=== PATIENT | male | born 1955 ===

== ENCOUNTER 2016-08-19 13:58 | Observation (INO) | payer OTHER ==
[~2016-08-19] VITALS: Ht 180.3 cm; Wt 81.6 kg
--- NOTE | 2016-08-19 14:07 | NUR ---
PT PRESENTS TO ER C/O OF LEFT SIDED CHEST PAIN THAT STARTED WEDNESDAY AND IS WORSE WITH EXERTION. PT DENIES SOB. PT STATES PAIN IS RIGHT BELOW LEFT BREAST AREA. PT STATES WHEN HE MOVES HIS ARM PAIN INCREASES
--- NOTE | 2016-08-19 15:29 | ED CARDIAC/CP/PALPITATIONS ---
History of Present Illness General Chief Complaint: Chest Pain Stated Complaint: CONSTANT CP SINCE WEDNESDAY Source: patient, family, old records Exam Limitations: no limitations Vital Signs & Intake/Output Vital Signs & Intake/Output ED Intake and Output 08/21 0000 08/20 1200 Intake Total 800 120 Output Total 300 Balance 500 120 Intake, Oral 800 120 Output, Urine 300 Patient 180 lb Weight Allergies Coded Allergies: No Known Allergies (08/19/16) Reconcile Medications Aspirin (Aspirin*) 81 MG TAB.CHEW 1 TAB PO DAILY HEART (Reported) Atorvastatin Calcium 40 MG TABLET 1 TAB PO DAILY CHOLESTEROL (Reported) Insulin Glargine,Hum.rec.anlog (Toujeo Solostar) 300 UNIT/ML (1.5 ML) INSULN.PEN 50 U SC DAILY DIABETES (Reported) Sitagliptin Phos/Metformin HCl (Janumet 50-1,000 MG Tablet) 50 MG-1,000 MG TABLET 1 TAB PO BID DIABETES (Reported) Valsartan (Diovan) 80 MG TABLET 1 TAB PO DAILY HEART (Reported) Triage Note: PT PRESENTS TO ER C/O OF LEFT SIDED CHEST PAIN THAT STARTED WEDNESDAY AND IS WORSE WITH EXERTION. PT DENIES SOB. PT STATES PAIN IS RIGHT BELOW LEFT BREAST AREA. PT STATES WHEN HE MOVES HIS ARM PAIN INCREASES Triage Nurses Notes Reviewed? yes Onset: Abrupt Duration: day(s): (3), constant Timing: recent history Quality/Severity: moderate, severe, aching, burning Location: back Radiation: no radiation Activities at Onset: sleep Prior Chest Pain/Card Workup: HOLTER MONITOR Nitro Today/Relief: no nitro taken today Aspirin Today: 81 mg x 1 Associated Symptoms: dizziness HPI: 61-year-old male with history of hypertension high cholesterol diabetes controlled with medication presents emergency room complaining of a three-day history of left-sided chest pain that intermittently radiates to his back and is worse with movement of his arm associated with dizziness. The patient states that he is been seen by emergency medicine physician Dr. Mitchell in the past most recently having a Holter monitor performed and is scheduled for nuclear stress test on September 07. He is a nonsmoker. His family history is significant in that multiple brothers have passed with coronary artery disease. There is no shortness of breath no pain with inspiration no cough no hemoptysis. Patient states that he had the flu several weeks ago however got better and recently return from [facility]. The symptoms are not worse with with inspiration, no hemoptysis. No recent sick contacts no abdominal pain nausea vomiting or diarrhea. Pain is described as burning aching constant 7 out of 10 worse with movement of his arm. Patient reports intermittent dizziness no lightheadedness. (KEVIN ADORNO) Past History Travel History Traveled to [place] past 21 day No Medical History Any Pertinent Medical History? see below for history Cardiovascular: hypertension, hyperlipidemia Endocrine: diabetes Surgical History Surgical History: non-contributory Psychosocial History What is your primary language Norwegian Tobacco Use: Never used Family History Comment: MULTIPLE BROTHERS PASSED IN THEIR 60S FROM HEART DISEASE Hx Contributory? Yes (KEVIN ADORNO) Review of Systems Review of Systems Constitutional: Reports: see HPI. All Other Systems: Reviewed and Negative Comments Review of systems: See HPI, All other systems negative. Constitutional, no chills no fever, no malaise HEENT: No visual changes no sore throat no congestion Cardiovascular: chest pain , no palpitation Skin, no rashes, no change in skin Respiratory: No dyspnea no cough no sputum GI: No nausea no vomiting, no diarrhea, : No dysuria Muscle skeletal: No joint pain, no joint swelling, no back pain, no neck pain, Neurologic: no headache Psych: No stress Heme/endocrine: No bruising no bleeding Immunology: No lymphadenopathy (KEVIN ADORNO) Physical Exam Physical Exam General Appearance: well developed/nourished, alert, awake, comfortable Cardiovascular: regular rate/rhythm Comments: Well-developed well-nourished person in no acute distress HEENT: Normal EENT exam; PERRL, EOMI, HEAD is atraumatic. moist mucous membranes. Neck: Supple, normal range of motion Back: Nontender, no CVA tenderness. Full range of motion Cardiovascular: Regular rate and rhythms no murmurs rubs or gallops, normal JVP Respiratory: Chest nontender.There were no bony deformities, no asymmetry. No respiratory distress. Patient speaking in full complete sentences. Breath sounds clear to auscultation bilaterally: NO W/R/R Abdomen: Soft, nontender nondistended, no appreciable organomegaly. Normal bowel sounds. No rebound/guarding, Extremity: No edema, full range of motion of extremities Neuro: Alert oriented x3, motor sensory normal, There were no obvious focal neurologic abnormalities. Skin: No appreciable rash on exposed skin, skin is warm and dry. Psych: Mood and affect is normal, memory and judgment is normal. Core Measures ACS in differential dx? 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 Sepsis Present: No Septic Shock Present: No (TREY ALARCON,KEVIN) Progress Differential Diagnosis: AMI, aortic dissection, atrial fibrillation, CHF/pulm edema, costochondritis Plan of Care: Orders Procedure Date/time Status Consistent Carbohydrate 2 08/20 B Active LIPID PANEL 08/20 599 Active CBC WITHOUT DIFFERENTIAL 08/20 599 Active BASIC ELECTROLYTES PLUS BUN&CR 08/20 599 Active TROPONIN LEVEL 08/20 0400 Active EKG 08/20 0400 Active TROPONIN LEVEL 08/19 2130 Active EKG 08/19 2130 Active Code Status 08/[address] in observation 08/19 1722 Active Pathway - chart 08/19 1719 Active Patient Data 08/19 1708 Active Add-on Test (ER Only) 08/19 1555 Active Telemetry/Supervisor Nutritional Yeast 08/19 1555 Active D-DIMER 08/19 1538 Complete TROPONIN LEVEL 08/19 1522 Complete PROTHROMBIN TIME 08/19 1522 Complete COMPREHENSIVE METABOLIC PANEL 08/19 1522 Complete CBC WITHOUT DIFFERENTIAL 08/19 1522 Complete EKG 08/19 1401 Active TRC EVALUATION (GEN) 08/19 UNK Active Pathway - chart 08/19 UNK Active House Staff 08/19 UNK Active VTE Mechanical Prophylaxis 08/19 UNK Active Vital Signs 08/19 UNK Active FingerStick- Glucose 08/19 UNK Active ECHOCARDIOGRAM 08/19 UNK Active Current Medications Sig/Snehal Start time Last Medication Dose Stop Time Status Admin Aspirin 81 MG DAILY 08/20 1000 UNVr (Aspirin) Losartan Potassium 25 MG DAILY 08/20 1000 UNVr (Cozaar) Heparin Sodium 5,000 UNIT Q8 08/19 2200 UNVr (Porcine) Insulin Detemir 25 UNITS BID 08/19 2200 UNVr (Levemir) Insulin Aspart 0 TIDAC 08/19 1815 UNVr (NovoLOG) Atorvastatin Calcium 40 MG DAILY 08/19 1740 UNVr (Lipitor) Acetaminophen 650 MG Q6 PRN 08/19 1730 UNVr (Tylenol) Acetaminophen/ 1 TAB Q6P PRN 08/19 1730 UNVr Hydrocodone Bitart (Vicodin) Morphine Sulfate 2 MG Q4P PRN 08/19 1730 UNVr (Morphine) Laboratory Tests 08/19/16 1538: Anion Gap 10, Estimated GFR > 60, BUN/Creatinine Ratio 14.4, Glucose 165 H, Calcium 9.8, Total Bilirubin 0.7, AST 28, ALT 32, Alkaline Phosphatase 70, Troponin I < 0.01, Total Protein 7.7, Albumin 4.2, Globulin 3.5, Albumin/ Globulin Ratio 1.2, PT 13.2 H, INR 1.26 H, D-Dimer < 200, CBC w Diff NO MAN DIFF REQ, RBC 5.35, MCV 80.8, MCH 26.2 L, RDW 14.0, MPV 7.7, Gran % 51.4, Lymphocytes % 38.6, Monocytes % 5.7, Eosinophils % 4.0, Basophils % 0.3, Absolute Granulocytes 5.9, Absolute Lymphocytes 4.4 H, Absolute Monocytes 0.6, Absolute Eosinophils 0.5, Absolute Basophils 0, PUBS MCHC 32.4 L Patient took aspirin prior to arrival nitroglycerin sublingual ordered case discussed with Dr. Davis. 08/19/2016 4:06:18 PM pain which was initially reproducible with range of motion of his arm and worse as now resolved after the nitroglycerin call was placed to Dr. Mitchell cardiology CASE D./W DR WILD COVERING FOR DR MITCHELL, WILL CONSULT AGREES GIVEN NORMAL TROP AND EKG (TREY ALARCON,KEVIN) Diagnostic Imaging: Viewed by Me: Radiology Read. Discussed w/RAD: Radiology Read. Radiology Impression: PATIENT: YASMINE RUSSO PRESENT AGE: 61 PATIENT ACCOUNT NO: [id number] : 54 LOCATION: [facility] ORDERING PHYSICIAN: KEVIN ALARCON SERVICE DATE: 08/19/163925 EXAM TYPE: RAD - XRY- PORTABLE CHEST XRAY EXAMINATION: XR PORTABLE CHEST CLINICAL INFORMATION: Cardiomegaly. Chest pain. COMPARISON: None TECHNIQUE: Portable AP view of the chest was obtained. 4:03 PM FINDINGS: Lungs are clear. No pulmonary vascular congestion. No infiltrate or pleural effusion. The heart size is normal. The cardiac and mediastinal contours are normal. There are calcifications of the thoracic aorta. IMPRESSION: Normal chest. Heart size is normal. DICTATED BY: CHAPO SINGH MD DATE/TIME DICTATED:08/19/161633 PRODUCTION LINE OPERATOR:RAD.ROUSSEAU DATE/TIME TRANSCRIBED:08/19/16 / 1633 CONFIDENTIAL, DO NOT COPY WITHOUT APPROPRIATE AUTHORIZATION. <Electronically signed in Other Vendor System> SIGNED BY: CHAPO SINGH MD 08/19/161637 Initial ED EKG: NORMAL SINUS AT 90, NO ACUTE st SEGMENT CHANGES NORMAL AXIS Rhythm Strip: normal sinus rhythm (KEVIN ADORNO) Departure Departure Time of Disposition: 1646 Disposition: STILL A PATIENT Condition: Stable Clinical Impression Primary Impression: Chest pain Referrals: CHRISTOFER KING MD (PCP/Family) Departure Forms: Customer Survey General Discharge Information Observation Note Spoke With: MILAGRO HECTOR,MARGOT Physician Advisor Notified: NANDA HECTOR,JAMARI Leal Place Patient In: Non-ED OBS Care Area Rationale for Observation: My rational for observation is as follows cardiology consult trend labs telemetry monitoring, patient will most likely require stress test given history family history premature discharge would BE medically harmful (KEVIN ADORNO) PA/MANAGEMENT RETAIL INTERN Co-Sign Statement Statement: ED Attending supervision documentation- [] I saw and evaluated the patient. I have also reviewed all the pertinent lab results and diagnostic results. I agree with the findings and the plan of care as documented in the PA's/MANAGEMENT RETAIL INTERN's documentation. [X] I have reviewed the ED Record and agree with the PA's/MANAGEMENT RETAIL INTERN's documentation. [] Additions or exceptions (if any) to the PAs/MANAGEMENT RETAIL INTERN's note and plan are summarized below: [] (ANASTACIA HECTOR,RENU) Critical Care Note Critical Care Note Critical Care Time: non-applicable (KEVIN ADORNO)
[2016-08-19] MEDS ORDERED: JANUMET 50-1,01 EACH PO (15:42)
[2016-08-19] MEDS ORDERED: DIOVAN80 M1 PO (15:42)
[2016-08-19] MEDS ORDERED: TOUJEO SOL300 UNIT/1 SC (15:42)
[2016-08-19] MEDS ORDERED: ATORVASTATIN CA40 M1 PO (15:43)
[2016-08-19 15:44] LABS: ABSOLUTE BASOPHIL COUNT 0 /CUMM (0.0-0.2); ABSOLUTE EOSINOPHIL COUNT 0.5 /CUMM (0.0-0.7); ABSOLUTE GRANULOCYTE CT 5.9 /CUMM (1.4-6.5); ABSOLUTE MONOCYTE COUNT 0.6 /CUMM (0.10-0.60); BASOPHIL % 0.3 % (0.0-2.0); GRANULOCYTE % 51.4 % (42.2-75.2); HEMATOCRIT 43.2 % (42-52); MEAN CORPUSCULAR HGB 26.2 PG (27.0-31.0); MEAN CORPUSCULAR HGB CONC 32.4 G/DL (33.0-37.0); MEAN CORPUSCULAR VOLUME 80.8 FL (80.0-94.0); MEAN PLATELET VOLUME 7.7 FL (7.4-10.4); PLATELET COUNT 257 /CUMM (130-400); RED BLOOD CELL CT 5.35 /CUMM (4.70-6.10); WHITE BLOOD CELL COUNT 11.4 /CUMM (4.8-10.8)
--- NOTE | 2016-08-19 15:50 | NUR ---
ASSUMED CARE, PT ALER AND ORIENTED, STATES THAT WEDNESDAY HE WOKE WITH L SIDE CP, PAIN HAS BEEN CONSTANT AND FEELS LIKE ITS RADIATING INTO HIS BACK, ALSO STATES THAT THIS AM WHEN HE WOKE HE FELT A LITTLE OFF BALANCE, PT NOTED TO SWAY WHEN THIS NURSE STOOD HIM FOR VITALS. ALSO STATES THAT PAIN INCREASES WITH MOVEMENT, NSR ON MONITOR , MEDICATED WITH 1 SL NITRO , PT COMPLAINED THAT HE WAS FEELING A LITTLE LIGHT HEADED, BP NOTED TO DROP FROM 135/78 TO 106/79 AFTER NITRO. BP INCREASED TO 118/74 WITH IN 5 MINUTES. PT DENIES CP AFTER BEING MEDICATED.PT IS IDDM [id number]. FAMILY AT BEDSIDE
[2016-08-19 15:52] LABS: PT 13.2 SEC (9.4-12.5)
[2016-08-19 16:06] LABS: ABSOLUTE LYMPH COUNT 4.4 /CUMM (1.2-3.4)
--- NOTE | 2016-08-19 16:38 | RADIOLOGY REPORT ---
EXAMINATION: XR PORTABLE CHEST CLINICAL INFORMATION: Cardiomegaly. Chest pain. COMPARISON: None TECHNIQUE: Portable AP view of the chest was obtained. 4:03 PM FINDINGS: Lungs are clear. No pulmonary vascular congestion. No infiltrate or pleural effusion. The heart size is normal. The cardiac and mediastinal contours are normal. There are calcifications of the thoracic aorta. IMPRESSION: Normal chest. Heart size is normal.
--- NOTE | 2016-08-19 17:12 | History & Physical ---
JAYCEE JONES MD 08/19/16 8102: General Information and HPI MD Statement: I have seen and personally examined YASMINE RUSSO and documented this H&P. The patient is a 61 year old M who presented with a patient stated chief complaint of chest pain. Source of Information: patient Exam Limitations: no limitations History of Present Illness: Mr. Myers is a 61 year old male with PMH HTN, HLD and insulin dependant diabetes mellitus as well as a strong family history of several male siblings who have from coronary artery disease who presents with constant, burning and pressure-like chest pain since 08/17/16. Patient reports he woke up on Wednesday and noted this left-sided chest discomfort that occasionally radiates to the back and worsens with left arm movement. It is rated moderately on the pain scale; there is no relief with over the counter the counter tylenol or nitroglycerin. This pain has been constant through to today which is the reason he presented to the emergency deparment. 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 Associated symptoms include occasional diaphoresis (which he experiences due to his diabetes), shortness of breath with intense exercise, constant chest discomfort described as burning and palpitations which are chronic and have been worked up with a holter monitor. Patient denies fever, chills, shortness of breath, wheezing, cough, abdominal pain, nausea, vomiting, dysuria, constipation or decreased exercise tolerance. Social history is negative for alcohol, current or prior tobacco abuse and illicit drug use. Family history is significant for several brothers who have passed from coronary artery diease, a father who of old age and a mother who of complications from diabetes mellitus. 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 Of note, patient follows with Dr. Wesley Smalls MD as his chief nurse executive. Patient is scheduled for a nuclear stress test later this month. Allergies/Medications Allergies: Coded Allergies: No Known Allergies (08/19/16) Home Med list Aspirin (Aspirin*) 81 MG TAB.CHEW 1 TAB PO DAILY HEART (Reported) Atorvastatin Calcium 40 MG TABLET 1 TAB PO DAILY CHOLESTEROL (Reported) Insulin Glargine,Hum.rec.anlog ([place] Solostar) 300 UNIT/ML (1.5 ML) INSULN.PEN 50 U SC DAILY DIABETES (Reported) Sitagliptin Phos/Metformin HCl (Janumet 50-1,000 MG Tablet) 50 MG-1,000 MG TABLET 1 TAB PO BID DIABETES (Reported) Valsartan (Diovan) 80 MG TABLET 1 TAB PO DAILY HEART (Reported) Compliance With Home Meds: GOOD Past History Travel History Traveled to [place] past 21 day No Medical History Cardiovascular: hypertension, hyperlipidemia Endocrine: diabetes History of CDIFF: No Isolation History: Standard Surgical History Surgical History: non-contributory Past Family/Social History Psychosocial History Where do you live? Home Who Do You Live With? Family Services at Home: None Smoking Status: Never Smoked ETOH Use: denies use Illicit Drug Use: denies illicit drug use Living Will? no Functional Ability ADLs Independent: dressing, eating, toileting, bathing. Ambulation: independent IADLs Independent: shopping, housework, finances, food prep, telephone, transportation , medication admin. Sexual History Sexually Active Yes Employment History Employment Retired Review of Systems Review of Systems Constitutional: Reports: diaphoresis. Denies: chills, fever, malaise, weakness, unexplained weight loss. EENTM: Denies: blurred vision, visual changes, hearing changes, nasal congestion. Cardiovascular: Reports: chest pain, palpitations, peripheral edema (Occasional RLE). Denies: orthopena, syncope. Respiratory: Denies: cough, short of breath, sputum production. GI: Denies: abdominal pain, nausea, changes in stool, vomiting. Genitourinary: Denies: dysuria. Musculoskeletal: Reports: back pain (Chest pain radiates to back). Skin: Denies: change in skin color, change in hair/nails, lesions, rash. Neurological/Psychological: Denies: ataxia, confusion, headache, numbness. Hematologic/Endocrine: Denies: bruising, bleeding, polyuria, polydipsia. Immunologic/Allergic: Denies: splenectomy. All Other Systems: Reviewed and Negative Exam & Diagnostic Data Last 24 Hrs of Vital Signs/I&O Vital Signs Date Time Temp Pulse Resp B/P Pulse O2 O2 Flow FiO2 Ox Delivery Rate 08/19 1748 76 119/73 08/19 1748 98.1 80 18 138/82 98 Room Air 08/19 1606 97.2 82 18 135/78 98 Room Air 08/19 1548 98 Room Air 08/19 1407 96.7 96 20 137/87 99 Room Air Intake & Output 08/19 1600 08/19 0800 08/19 0000 Intake Total 0 Output Total Balance 0 Intake, Oral 0 Patient 180 lb Weight Physical Exam General Appearance Alert, Oriented X3, Cooperative, No Acute Distress Skin No Rashes, No Breakdown HEENT Atraumatic, PERRLA, EOMI, Mucous Membr. moist/pink Neck Supple, No JVD, +2 Carotid Pulse wo Bruit Lymphatic Cervical nl Cardiovascular Regular Rate, Normal S1, Normal S2, No Murmurs Lungs Clear to Auscultation, Normal Air Movement Abdomen Normal Bowel Sounds, Soft, No Tenderness, No Hepatospenomegaly, No Masses Neurological Normal Speech, Strength at 5/5 X4 Ext, Normal Tone, Cranial Nerves 3-12 NL Extremities No Clubbing, No Cyanosis, No Edema, No Tenderness/Swelling Vascular Pulses Symmetrical Last 24 Hrs of Labs/Eric: Laboratory Tests 08/19/16 1538: Anion Gap 10, Estimated GFR > 60, BUN/Creatinine Ratio 14.4, Glucose 165 H, Calcium 9.8, Total Bilirubin 0.7, AST 28, ALT 32, Alkaline Phosphatase 70, Troponin I < 0.01, Total Protein 7.7, Albumin 4.2, Globulin 3.5, Albumin/ Globulin Ratio 1.2, PT 13.2 H, INR 1.26 H, D-Dimer < 200, CBC w Diff NO MAN DIFF REQ, RBC 5.35, MCV 80.8, MCH 26.2 L, RDW 14.0, MPV 7.7, Gran % 51.4, Lymphocytes % 38.6, Monocytes % 5.7, Eosinophils % 4.0, Basophils % 0.3, Absolute Granulocytes 5.9, Absolute Lymphocytes 4.4 H, Absolute Monocytes 0.6, Absolute Eosinophils 0.5, Absolute Basophils 0, PUBS MCHC 32.4 L Diagnostic Data EKG Results NSR, HR 89 bpm, QTC 414, no ST/T wave changes. CXR Results EXAMINATION: XR PORTABLE CHEST CLINICAL INFORMATION: Cardiomegaly. Chest pain. COMPARISON: None TECHNIQUE: Portable AP view of the chest was obtained. 4:03 PM FINDINGS: Lungs are clear. No pulmonary vascular congestion. No infiltrate or pleural effusion. The heart size is normal. The cardiac and mediastinal contours are normal. There are calcifications of the thoracic aorta. IMPRESSION: Normal chest. Heart size is normal. Assessment/Plan Assessment: Mr. Myers is a 61 year old male with PMH HTN, HLD and insulin dependant diabetes mellitus as well as a strong family history of several male siblings who have from coronary artery disease who presents with a three day history of constant, left chest "burning" pain that is moderate in intensity and occasionally radiates to the back. It is not relieved with tylenol or nitrogylcerin and is worsened with left upper extremity movement. In the emergency room: Vital signs showed T 97.2, HR 96, RR 20, BP 137/87 and O2 saturation of 99% on room air. Labs were significant for slight increase in WBC to 11.4 without bandemia, normal BEP, Glu 165, trop <0.01, DDimer <200 and INR 1.26. CXR was obtained and showed no pulmonary vascular congestion. No infiltrate or pleural effusion. The heart size is normal. The cardiac and mediastinal contours arenormal. Calcifications of the thoracic aorta. EKG showed NSR HR [address] /T wave changes. Patient is admitted as an observation to the telemetry floor and the following is the management: 1. Atypical chest pain * DDX ACS, unstable angina, GERD, musculoskeletal pain, pericarditis * Rule out ACS, admit to tele for continuous telmetry monitoring * First troponin/EKG without evidence of ACS, trend trops/EKG further to rule out ACS * PE unlikely with low D-Dimer, no hypoxia, no evidence of lung pathology on CXR * Cardio consult with Dr. Smalls for the AM * Pain control with tylenol for mild, vicodin for moderate and morphine for severe pain * Lipid panel for AM, f/u results * Follow up echocardiogram 2. HTN, HLD * Cotninue lostartan 25 mg PO daily and lipitor 40 mg PO daily * Vital signs Q shift 3. Diabetes mellitus * Hold home regimen * Accuchecks TIDAC/HS * NSS TIDAC * Diabetic diet FULL CODE DVTP: Heparin SC Mild to severe pain pathway Consistent carb 2 diet As Ranked By This Provider Problem List: 1. Chest pain Core Measures/Miscellaneous Acute Coronary Syndrome ACS Diagnosis: No Cerebrovascular Accident CVA/TIA Diagnosis: No Congestive Heart Failure CHF Diagnosis: No Venous Thromboembolism VTE Risk Factors: Age > 40 No [facility] VTE prophylaxis d/t: No contraindications No VTE Pharm Prophylaxis d/t: No contraindications VTE Diagnosis: No VTE Type: NONE VTE Confirmed by (Test): NONE Severe Sepsis Severe Sepsis Present: No Septic Shock Septic Shock Present: No Miscellaneous Documentation Attending Case Discussed With: Dr. Archuleta Primary Care Physician: CHRISTOFER KING MD Patient sees these Specialists Dr. Smalls, cardiology Level of Patient Care: Telemetry JOSHUA RODRIGUEZ 08/19/16 1714: Resident Review Statement Resident Statement: examined this patient, discussed with exercise science internship, agreed with exercise science internship, discussed with family, reviewed EMR data (avail), discussed with nursing , discussed with case mgmt, reviewed images, amended to note Other Findings: 61-year-old male with a past medical history of insulin-dependent diabetes mellitus, hyperlipidemia, hypertension presents to the ED with chief complaint of chest pain. According to the patient he was in his usual state of health up until Wednesday when he woke up to left-sided chest pain. He describes it as a burning and squeezing sensation, which is worse when he is ambulating and gets little bit better when he is lying down. He also endorses that the pain radiates down towards his back and worsens every time he lifts his left arm. He denies any nausea, vomiting, shortness of breath, fever, chills but does endorse having flulike symptoms about 2 weeks ago. He says that his pain is moderate in intensity and constant. He took NSAIDs which didn't really help relieve the pain. He denies any orthopnea, PND. His family history significant for [place] in his brother at the age of 60 as well as his father at the age of 70. He denies any alcoholic use, has never smoked and denies any illicit drug use. He denies any wheezes stress at work or in his family. He denies any cough or palpitations. Of note he last saw Dr. Smalls in his office about 2 months ago where he was being worked up for palpitations and according to him his Holter screening showed an irregular heartbeat. He was scheduled for a nuclear stress test tomorrow however has to be rescheduled for later this month is as Dr. Smalls with his primary chief nurse executive is not in town. In the ER patient received sublingual nitroglycerin didn't really help with his pain. Of note he did travel to [facility] about a week ago and it was almost a 5-1/2 hour plane ride. He does endorse swelling in his leg and states that his right leg is little bit more swollen compared to the left. Vitals at the time of admission blood pressure 137/87, respiratory rate 20, pulse 96, afebrile saturating 99% on room air. On physical exam he is alert and oriented 3 and in no acute distress sitting comfortably in bed. HEENT revealed PERRLA, moist mucous membranes. Examination of the neck revealed no JVD of 5 cm, likely lymphadenopathy. Cardiovascular exam was benign with normal S1, S2, no murmurs rubs or gallops, S3 or S4 appreciated. Chest was clear to auscultation bilaterally and there was no chest tenderness on palpation. Abdominal exam was benign with abdomen soft, nontender , nondistended with bowel sounds in all 4 quadrants. Examination of lower extremities did not reveal any edema. Labs pertinent for leukocytosis with a white blood cell count of 11,400, and H&H of 14.0/43.2, platelet count of 257,000. Serum chemistries pertinent for sodium of 138, potassium of 4.5, normal anion gap, BUN 13 and a creatinine of 0.9. Serum glucose elevated to 165. LFTs unremarkable with an AST/ALT of 28/32, alkaline phosphatase of 70, troponin first set negative at less than 0.01. His INR is 1.26 and d-dimer is less than 200. Chest x-ray revealed no pulmonary vascular congestion, infiltrate or pleural effusion, cardiac silhouette is normal with evidence of calcification of thoracic aorta. EKG showed NSR, 89, normal axis, no ST-T changes, QTc: 414. In the ER he received 0.4 mg of sublingual nitroglycerin. Assessment and plan Admit to [facility] for observation. #Atypical chest pain Differentials at this point include musculoskeletal chest pain highly likely given that the pain worsens every time he lifts his arm, GERD (given it is burning in nature), pericarditis (given recent history of flulike symptoms, and positional changes in intensity of pain, however there are no ECG changes suggestive of it), versus pleurisy versus PE highly unlikely given negative d- dimer, however patient does have a history of prolonged traveling, but is not tachycardic and not hypoxic and his well's score is 0) versus acute coronary syndrome (unlikely given the fact that the pain is constant, positional in nature and first set of troponin has been negative despite been occurring for almost 2 days now) Rule out ACS with troponins and EKG at 9:30 PM and 4 AM Echocardiogram to further evaluate for any pericardial effusion, regional wall motion abnormalities Cardiology consult with Dr. Smalls (Dr. Morris covering) in a.m. #Hyperlipidemia Continue on atorvastatin 40 mg daily #Hypertension Patient is on one 60 mg of valsartan. We will continue him on losartan here in the hospital 25 mg daily #Insulin-dependent diabetes mellitus We'll continue to hold his oral hypoglycemic agents Start him on Levemir 25 units twice a day subcutaneous and NovoLog sliding scale Accu-Cheks 3 times a day at bedtime Follow-up hemoglobin A1c -DVT prophylaxis Heparin 5000 international units 3 times a day subcutaneous Diet Consistent carb 2 CODE STATUS Full code NOHEMI HECTOR, [facility] 08/19/16 1837: Attending MD Review Statement Attending Statement Attending MD Statement: examined this patient, discuss w/resident/PA/HR OPERATIONS ADVISOR, agreed w/resident/PA/HR OPERATIONS ADVISOR Attending Assessment/Plan: 61 yo M nonsmoker with h/o T2DM on insulin, HTN, HLD, who has a h/o viral pericarditis (20 yrs ago), palpitations ?irregular heart beat/ missed beats for which he has undergone stress test 5 yrs ago (negative) and more recently Holter (showed irregular beats), and was scheduled for outpatient Stress test on September 07, is here with 2-day h/o left sided constant chest heaviness radiating to the back, non-pleuritic, worse with exertion and arm movement. Mild exertiona dyspnea, chronic palpitations. Occasional dependent edema to right ankle. Strong family h/o CAD in brother and father. Reports flu-like illness 3 weeks back when he was at [facility], returned on Aug 07 by flight, symptoms resolved since. 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 VSS. Exam unremarkable. Labs: WBC 11.4, D-dimer <200, glucose 165, trop <0.01, CXR normal. EKG: SR with no acute changes, Qtc 414. 1. Chest pain needs Tele placement for Observation to rule out ACS. Negative D- dimer rules out PE. SL nitro given in ER did not relieve the pain. Serial EKG and troponin, Echo, Cardio consult (Dr. Morris covering for Dr. Smalls). Plan for ?inpatient nuclear stress test. Check TSH, free T4, HbA1c and lipid panel. Continue home meds valsartan, aspirin, statin. IV morphine PRN for pain. Hold januvia and metformin. DVT ppx Lovenox. Full code.
[2016-08-19] MEDS ORDERED: ASPIRIN81 M4 PO (17:34)
--- NOTE | 2016-08-19 17:46 | NUR ---
PHARMACY CALLED FOR MEDS. HOUSE STAFF AT BEDSIDE
--- NOTE | 2016-08-19 18:36 | NUR ---
FINGERSTICK 115 AT THIS TIME, NO COVERAGE NEEDED. PT ATE 100 % OF DINNER. DAUGHTER AT BEDSIDE, PT DENIES CP/SOB AT THIS INES. AWARE THAT HE IS STAYING IN THE HOSPITAL AND THAT HE WILL HAVE REPEAT TROPONIN AND EKG AT 2130
--- NOTE | 2016-08-19 18:54 | NUR ---
BEDSIDE ECHO BEING DONE AT THIS TIME
--- NOTE | 2016-08-19 20:08 | NUR ---
PT A/O X4. RESP UNLABORED. NSR ON THE MONITOR. SKIN WARM AND DRY. PT REPORTS PAIN IMPROVING. FAMILY AT BEDSIDE. WILL CONTINUE TP MONITOR.
--- NOTE | 2016-08-19 20:27 | NUR ---
PT TRANSFERRED ONTO HOSPITAL BED.
--- NOTE | 2016-08-19 22:20 | NUR ---
PT APPEARS TO BE RESTING COMFORTBALY. DENIES PAIN. NSR ON THE MONITOR. RESP UNLBAORED. WILL CONTINUE TO MONITOR
[2016-08-20 05:20] LABS: ABSOLUTE BASOPHIL COUNT 0 /CUMM (0.0-0.2); ABSOLUTE EOSINOPHIL COUNT 0.4 /CUMM (0.0-0.7); ABSOLUTE GRANULOCYTE CT 5.6 /CUMM (1.4-6.5); ABSOLUTE LYMPH COUNT 4.4 /CUMM (1.2-3.4); ABSOLUTE MONOCYTE COUNT 0.7 /CUMM (0.10-0.60); BASOPHIL % 0.3 % (0.0-2.0); EOSINOPHIL % 3.2 % (0-5); GRANULOCYTE % 50.3 % (42.2-75.2); MEAN CORPUSCULAR HGB CONC 32.4 G/DL (33.0-37.0); MEAN CORPUSCULAR VOLUME 80.3 FL (80.0-94.0); MEAN PLATELET VOLUME 7.9 FL (7.4-10.4); PLATELET COUNT 237 /CUMM (130-400); RBC DISTRIBUTION WIDTH 14.3 % (11.5-14.5); RED BLOOD CELL CT 5.11 /CUMM (4.70-6.10); WHITE BLOOD CELL COUNT 11.1 /CUMM (4.8-10.8)
--- NOTE | 2016-08-20 06:52 | PN- Housestaff ---
See Addendum Subjective Follow-up For: ACS rule out Constant chest pain Family history of CAD Subjective: Patient seen and evaluated at bedside this AM. He is sitting up in bed enjoying his breakfast and continues to endorse constant left-sided chest pain that occasionally radiates to the back. He has had no relief since admission but is happy ACS has been ruled out as this was his biggest concern. Patient denies fever, chills, nausea, vomiting, reflux-like symptoms or shortness of breath. Review of Systems Constitutional: Denies: chills, fever, malaise, weakness. EENTM: Denies: visual changes, hearing changes, nasal congestion. Cardiovascular: Reports: chest pain. Denies: palpitations, peripheral edema, syncope. Respiratory: Denies: cough, short of breath. Gastrointestinal: Denies: abdominal pain, nausea, vomiting. Genitourinary: Denies: dysuria. Musculoskeletal: Reports: back pain (Chest pain radiates to back). Skin: Denies: rash. Neurological/Psychological: Denies: confusion, headache. Hematologic/Endocrine: Denies: bleeding. Immunologic/Allergic: Denies: splenectomy. Objective Last 24 Hrs of Vital Signs/I&O Vital Signs Date Time Temp Pulse Resp B/P Pulse O2 O2 Flow FiO2 Ox Delivery Rate 08/20 0618 97.5 80 20 132/65 99 Room Air 08/20 0340 97.2 80 20 111/58 97 Room Air 08/19 2245 97.5 72 16 130/69 98 08/19 2009 96.0 90 18 129/64 95 Room Air 08/19 1748 76 119/73 08/19 1748 98.1 80 18 138/82 98 Room Air 08/19 1606 97.2 82 18 135/78 98 Room Air 08/19 1548 98 Room Air 08/19 1407 96.7 96 20 137/87 99 Room Air Intake & Output 08/20 1600 08/20 0800 08/20 0000 Intake Total 120 Output Total Balance 120 Intake, Oral 120 Patient 180 lb Weight Physical Exam General Appearance: Alert, Oriented X3, Cooperative, No Acute Distress Other Physical Findings: Skin No Rashes, No Breakdown HEENT Atraumatic, PERRLA, EOMI, Mucous Membr. moist/pink Neck Supple, No JVD, +2 Carotid Pulse wo Bruit, no tenderness to cervical spine palpation. Lymphatic Cervical nl Cardiovascular Regular Rate, Normal S1, Normal S2, No Murmurs Lungs Clear to Auscultation, Normal Air Movement Abdomen Normal Bowel Sounds, Soft, No Tenderness, No Hepatospenomegaly, No Masses Neurological Normal Speech, Strength at 5/5 X4 Ext, Normal Tone, Cranial Nerves 3-12 NL Extremities No Clubbing, No Cyanosis, No Edema, No Tenderness/Swelling Vascular Pulses Symmetrical Current Medications: Current Medications Sig/Snehal Start time Last Medication Dose Route Stop Time Status Admin Acetaminophen 650 MG Q6P PRN 08/19 1730 AC PO Acetaminophen/ 0 .STK-MED ONE 08/20 0244 DC Hydrocodone Bitart PO Acetaminophen/ 1 TAB Q6P PRN 08/19 1730 AC Hydrocodone Bitart PO Aspirin 81 MG DAILY 08/20 1000 AC PO Atorvastatin Calcium 40 MG DAILY 08/19 1740 AC 08/19 PO 1832 Heparin Sodium 0 .STK-MED ONE 08/20 0530 DC (Porcine) .ROUTE Heparin Sodium 0 .STK-MED ONE 08/19 2217 DC (Porcine) .ROUTE Heparin Sodium 5,000 UNIT Q8 08/19 2200 AC 08/20 (Porcine) SC 0527 Insulin Aspart 0 TIDAC 08/19 1815 AC SC Insulin Detemir 25 UNITS BID 08/19 2200 AC 08/19 SC 2220 Losartan Potassium 25 MG DAILY 08/20 1000 AC PO Morphine Sulfate 2 MG Q4P PRN 08/19 1730 AC IV Nitroglycerin 0.4 MG ONCE ONE 08/19 1600 DC 08/19 SL 08/19 1601 1555 Last 24 Hrs of Lab/Eric Results Last 24 Hrs of Labs/Mics: Laboratory Tests 08/20/16 0600: Triglycerides Cancelled, Cholesterol Cancelled, LDL Cholesterol, Calc Cancelled, HDL Cholesterol Cancelled, Cholesterol/HDL Ratio Cancelled, CBC w Diff Cancelled , WBC Cancelled, RBC Cancelled, Hgb Cancelled, Hct Cancelled, MCV Cancelled, MCH Cancelled, RDW Cancelled, Plt Count Cancelled, MPV Cancelled, PUBS MCHC Cancelled 08/20/16 0450: Anion Gap 9, Estimated GFR > 60, BUN/Creatinine Ratio 13.3, Hemoglobin A1c Pending, Troponin I < 0.01, Triglycerides 107, Cholesterol 137, LDL Cholesterol, Calc 83, HDL Cholesterol 33 L, Cholesterol/HDL Ratio 4, Free T4 1.16, Total T3 1.55, TSH &T3 &Free T4 Intrp 1.550, CBC w Diff NO MAN DIFF REQ, RBC 5.11, MCV 80.3, MCH 26.0 L, RDW 14.3, MPV 7.9, Gran % 50.3, Lymphocytes % 39.6, Monocytes % 6.6, Eosinophils % 3.2, Basophils % 0.3, Absolute Granulocytes 5.6, Absolute Lymphocytes 4.4 H, Absolute Monocytes 0.7 H, Absolute Eosinophils 0.4, Absolute Basophils 0, PUBS MCHC 32.4 L 08/20/16 0400: Troponin I Cancelled 08/19/16 2125: Troponin I < 0.01 08/19/16 1538: Anion Gap 10, Estimated GFR > 60, BUN/Creatinine Ratio 14.4, Glucose 165 H, Calcium 9.8, Total Bilirubin 0.7, AST 28, ALT 32, Alkaline Phosphatase 70, Troponin I < 0.01, C-Reactive Prot, Quant 0.6, Total Protein 7.7, Albumin 4.2, Globulin 3.5, Albumin/Globulin Ratio 1.2, PT 13.2 H, INR 1.26 H, D-Dimer < 200 , CBC w Diff NO MAN DIFF REQ, RBC 5.35, MCV 80.8, MCH 26.2 L, RDW 14.0, MPV 7.7 , Gran % 51.4, Lymphocytes % 38.6, Monocytes % 5.7, Eosinophils % 4.0, Basophils % 0.3, Absolute Granulocytes 5.9, Absolute Lymphocytes 4.4 H, Absolute Monocytes 0.6, Absolute Eosinophils 0.5, Absolute Basophils 0, PUBS MCHC 32.4 L Orders Radiology Findings: CXR: IMPRESSION: Normal chest. Heart size is normal. Assessment/Plan Assessment: Mr. Myers is a 61 year old male with PMH HTN, HLD and insulin dependant diabetes mellitus as well as a strong family history of several male siblings who have from coronary artery disease who presents with a three day history of constant, left chest "burning" pain that is moderate in intensity and occasionally radiates to the back. It is not relieved with tylenol or nitrogylcerin and is worsened with left upper extremity movement. In the emergency room: Vital signs showed T 97.2, HR 96, RR 20, BP 137/87 and O2 saturation of 99% on room air. Labs were significant for slight increase in WBC to 11.4 without bandemia, normal BEP, Glu 165, trop <0.01, DDimer <200 and INR 1.26. CXR was obtained and showed no pulmonary vascular congestion. No infiltrate or pleural effusion. The heart size is normal. The cardiac and mediastinal contours arenormal. Calcifications of the thoracic aorta. EKG showed NSR HR [address] /T wave changes. Patient is admitted as an observation to the telemetry floor and the following is the management: 1. Atypical chest pain * Troponin/EKG negative x 3 for ACS with no elevation and no ST/T wave changes respectively * PE unlikely with low D-Dimer, low Well's score, no hypoxia, no evidence of lung pathology on CXR * Cardio consult with Dr. Morris placed for this AM * Patient to have nuclear stress test this AM, follow up results * Pain control with tylenol for mild, vicodin for moderate and morphine for severe pain * Lipid panel shows only low HDL but other values within normal limits * Follow up echocardiogram results * TSH, FT4 within normal limits 2. HTN, HLD * Continue lostartan 25 mg PO daily and lipitor 40 mg PO daily * Vital signs Q shift 3. Diabetes mellitus * Hold home regimen * Accuchecks TIDAC/HS * NSS TIDAC * Diabetic diet * HgA1C pending, f/u results FULL CODE DVTP: Heparin SC Mild to severe pain pathway Consistent carb 2 diet Problem List: 1. Chest pain 2. Hypertension 3. Hyperlipidemia 4. Insulin dependent diabetes mellitus Pain Ratin Pain Location: Left chest with occasional radiation to the back Pain Goal: Pain 4 or less Pain Plan: Tylenol for mild, vicodin for mmoderate and morphine for severe pain. Tomorrow's Labs & Rationales: None.
[2016-08-20 08:05] VITALS: BP 132/65
--- NOTE | 2016-08-20 08:12 | Patient Discharge Instructions ---
Discharge Instructions General Discharge Information You were seen/treated for: Chest pain Rule out acute coronary syndrome You had these procedures: Echocardiogram EKG Watch for these problems: Return of your symptoms, worsening chest pain, sweating, shortness of breath on exertion or other concerning symptoms. Special Instructions: Please follow up with your PCP Dr. Winter within 7 days of discharge for continue care and monitoring of your chest pain. Please follow up with Dr. Smalls within 7 days for continued cardiac care and outpatient stress test. Please take all medciations as directed. Please return if you have any of the symptoms noted above or other concerning symptoms. Diet Recommended Diet: Diabetic, Heart Healthy Activity Activity Self Limited: Yes Acute Coronary Syndrome Inclusion Criteria At DC or during hospital stay patient has or had the following: ACS DIAGNOSIS No Discharge Core Measures Meds if any: Prescribed or Continued at Discharge Meds if any: NOT Prescribed or Continued at Discharge Congestive Heart Failure Inclusion Criteria At DC or during hospital stay patient has or had the following: CHF DIAGNOSIS No Discharge Core Measures Meds if any: Prescribed or Continued at Discharge Meds if any: NOT Prescribed or Continued at Discharge Cerebrovascular accident Inclusion Criteria At DC or during hospital stay patient has or had the following: CVA/TIA Diagnosis No Discharge Core Measures Meds if any: Prescribed or Continued at Discharge Meds if any: NOT Prescribed or Continued at Discharge Venous thromboembolism Inclusion Criteria VTE Diagnosis No VTE Type NONE VTE Confirmed by (Test) NONE Discharge Core Measures - Per Current guidelines, there needs to be overlap - treatment for the first 5 days of Warfarin therapy. - If discharged on Warfarin prior to 5 days of - overlap therapy, the patient will need to be - assessed for post discharge needs including - *Post discharge parental anticoagulation - *Warfarin and/or parental anticoagulation education - *Follow up date to check INR post discharge At least 5 days overlap therapy as Inpatient No Meds if any: Prescribed or Continued at Discharge Note: Overlap Therapy is Warfarin and Anticoagulant Meds if any: NOT Prescribed or Continued at Discharge
--- NOTE | 2016-08-20 12:30 | NUR ---
BED ASSIGNMENT [id number]
[2016-08-20 16:00] VITALS: BP 128/75
--- NOTE | 2016-08-20 16:06 | ECHOCARDIOGRAM REPORT ---
YASMINE RUSSO Age: 61 : 1955 Gender: M Exam Date: 08/19/2016 18:53 Exam Location: ER Ht (in): 71 Wt (lb): 180 BSA: 2.03 BP: 138 / 82 Ordering Physician: JOSHUA RODRIGUEZ MD Referring Physician: Wesley Smalls MD Chief, SoC Technologist: Eda Moreira TIFFANIE Room Number: ER#3 Indications: CHEST PAIN Rhythm: Sinus Technical Quality: Fair FINDINGS Left Ventricle Normal global left ventricular size, wall thickness, systolic function with no obvious regional wall motion abnormalities. Normal left ventricular ejection fraction estimated at 60-65%. Right Ventricle Normal right ventricular size and function. Right Atrium Normal right atrial size. Left Atrium Normal left atrial size. Mitral Valve Mitral valve thickened. Trace to mild mitral regurgitation. Aortic Valve Trileaflet aortic valve. Focal thickening of the aortic valve cusps. No aortic stenosis. No aortic regurgitation. Tricuspid Valve Tricuspid valve not well visualized, grossly normal. Trace tricuspid regurgitation. Pulmonic Valve Pulmonic valve not well visualized, grossly normal. Trace to mild pulmonic regurgitation. Pericardium No pericardial effusion. Great Vessels Normal size aortic root and proximal ascending aorta. CONCLUSIONS 1. Minimal aortic sclerosis is present with no valvular stenosis or insufficiency. 2. Mitral leaflet thickening is present with chordal RISA and no evidence of outflow obstruciton with minimal to mild mitral insufficiency. 3. There is no significant pericardial fluid present. 4. The left ventricular chamber size is normal with disproportionate thickening of the upper interventricualr septum and a normal ejection fraction with no resting wall motion abnormalities. 5. The right heart structures are grossly normal with minimal to mild tricuspid and pulmonic insufficiency and no significant pulmonary hypertension. Gerard Morris M.D. (Electronically Signed) Final Date: 20 August 2016 16:05 MEASUREMENTS (Male / Female) Normal Values 2D ECHO LV Diastolic Diameter PLAX 3.4 cm 4.2 - 5.9 / 3.9 - 5.3 cm LV Systolic Diameter PLAX 1.7 cm 2.1 - 4.0 cm LV Fractional Shortening PLAX 50.0 % 25 - 46 % LV Ejection Fraction 2D Teich 82.3 % IVS Diastolic Thickness 1.1 cm LVPW Diastolic Thickness 1.1 cm LV Relative Wall Thickness 0.6 RV Internal Dim ED PLAX 2.9 cm 1.9 - 3.8 cm LVOT Diameter 2.0 cm Aortic Root Diameter 3.2 cm LA Systolic Diameter LX 3.3 cm 3.0 - 4.0 / 2.7 - 3.8 cm LA Volume 33.0 cm 18 - 58 / 22 - 52 cm Ascending Aorta Diameter 3.4 cm DOPPLER AV Peak Velocity 102.0 cm/s AV Peak Gradient 4.2 mmHg AV Mean Velocity 69.8 cm/s AV Mean Gradient 2.0 mmHg AV Velocity Time Integral 19.8 cm LVOT Peak Velocity 79.7 cm/s LVOT Peak Gradient 2.5 mmHg LVOT Mean Velocity 61.5 cm/s LVOT Mean Gradient 2.0 mmHg LVOT Velocity Time Integral 16.5 cm LVOT Stroke Volume 51.8 cm AV Area Cont Eq vti 2.6 cm AV Area Cont Eq pk 2.5 cm MV Peak Velocity 76.2 cm/s MV Peak Gradient 2.3 mmHg MV Mean Velocity 45.7 cm/s MV Mean Gradient 1.0 mmHg Mitral E Point Velocity 52.1 cm/s Mitral A Point Velocity 57.7 cm/s Mitral E to A Ratio 0.9 MV PHT Velocity 76.2 cm/s MV Deceleration Citrus 363.0 cm/s MV Pressure Half Time 63.0 ms MV Area PHT 3.5 cm MV Deceleration Time 312.0 ms TR Peak Velocity 87.3 cm/s TR Peak Gradient 3.0 mmHg Right Atrial Pressure 5.0 mmHg Pulmonary Artery Systolic Pressu 8.0 mmHg Right Ventricular Systolic Press 8.0 mmHg PV Peak Velocity 77.7 cm/s PV Peak Gradient 2.4 mmHg PV Mean Velocity 57.8 cm/s PV Mean Gradient 1.0 mmHg PV Velocity Time Integral 16.8 cm LV E' Lateral Velocity 9.6 cm/s Mitral E to LV E' Lateral Ratio 5.5 LV E' Septal Velocity 7.1 cm/s Mitral E to LV E' Septal Ratio 7.3
[2016-08-20 16:08] VITALS: BP 128/75
--- NOTE | 2016-08-20 16:20 | Event Note ---
Event Note Event Note: I was informed by Radiologist, Dr. Szymanski that patient's nuclear imaging results of stress test is normal. Per bridge crew member Dr. Morris and attending Dr. Pizarro, given normal stress test results, patient will be discharged.
--- NOTE | 2016-08-20 17:03 | NUR ---
PT WANTED TO TALK TO ABOUT STRESS TEST RESULTS. PHONE NUMBER TAKEN DOWN . MD RIVAS PAGER [phone] MADE AWARE.
--- NOTE | 2016-08-20 17:10 | NUCLEAR MEDICINE REPORT ---
EXERCISE STRESS AND RESTING SPECT MYOCARDIAL PERFUSION IMAGING STUDY WITH GATED SPECT IMAGES: CLINICAL INDICATION: Atypical chest pain. PROCEDURE: Regional myocardial perfusion was assessed using a 1 day protocol. Stress images were obtained on 08/20/2016 following the intravenous administration of 21.5 mCi Tc 99m Myoview. Stress was performed using the standard Domingo protocol, with the patient reaching a peak heart rate of 89% maximal predicted heart rate. Rest images were obtained 08/20/2016 following the intravenous administration of 30.5 mCi Technetium 99m Myoview. Single photon emission tomographic (SPECT) images were obtained. SPECT images were acquired in a 64 x 64 matrix of 64 projections over 180 degrees. These were reconstructed into standard short axis, horizontal and vertical long axis cardiac projections. FINDINGS: The post stress images demonstrate the left ventricular chamber to be normal in size. There is homogeneous distribution of activity in the left ventricular myocardium with no regions of abnormally decreased activity noted. The resting images also demonstrate homogeneous distribution of activity in the left ventricular myocardium, and are not significantly changed from the post stress images. The stress images were obtained using a gated SPECT technique, which permits visualization of wall motion and calculation of the left ventricular ejection fraction. No left ventricular wall motion abnormalities are noted on the stress study. The calculated left ventricular ejection fraction is 66% on the stress study. No previous study is available for comparison. IMPRESSION: Normal exercise stress and resting myocardial perfusion study with normal left ventricular wall motion and ejection fraction. This Critical Result was discussed with Dr. Edwards at 4:18 PM on 08/20/2016 and it was ascertained that the content and urgency of the report was understood at the time of direct communication.
--- NOTE | 2016-08-20 20:29 | Cons- Cardiology ---
General Information and HPI Consulting Request Date of Consult: 08/20/16 Requested By: NOHEMI HECTOR,REGINA Reason for Consult: Chest pain Source of Information: patient, family Exam Limitations: no limitations History of Present Illness: Mr. Christian is a 61 year old male with PMH HTN, HLD and insulin dependant diabetes mellitus as well as a strong family history of several male siblings who have from coronary artery disease who presents with constant, burning and pressure-like chest pain since 08/17/16. Patient reports he woke up on Wednesday and noted this left-sided chest discomfort that occasionally radiates to the back and worsens with left arm movement. It is rated moderately on the pain scale; there is no relief with over the counter the counter tylenol or nitroglycerin. This pain has been constant through to today which is the reason he presented to the emergency deparment. 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 Associated symptoms include occasional diaphoresis (which he experiences due to his diabetes), shortness of breath with intense exercise, constant chest discomfort described as burning and palpitations which are chronic and have been worked up with a holter monitor. Patient denies fever, chills, shortness of breath, wheezing, cough, abdominal pain, nausea, vomiting, dysuria, constipation or decreased exercise tolerance. The patient continues to have intermittent chest discomfort which I believe to be non cardiac. Nuclear stress test and echo today prior to considertion for discharge. Allergies/Medications Allergies: Coded Allergies: No Known Allergies (08/19/16) Home Med List: Aspirin (Aspirin*) 81 MG TAB.CHEW 1 TAB PO DAILY HEART (Reported) Atorvastatin Calcium 40 MG TABLET 1 TAB PO DAILY CHOLESTEROL (Reported) Insulin Glargine,Hum.rec.anlog (Rose Marie Gant) 300 UNIT/ML (1.5 ML) INSULN.PEN 50 U SC DAILY DIABETES (Reported) Sitagliptin Phos/Metformin HCl (Janumet 50-1,000 MG Tablet) 50 MG-1,000 MG TABLET 1 TAB PO BID DIABETES (Reported) Valsartan (Diovan) 80 MG TABLET 1 TAB PO DAILY HEART (Reported) Current Medications: Current Medications Sig/Snehal Start time Last Medication Dose Route Stop Time Status Admin Acetaminophen 650 MG Q6P PRN 08/19 1730 DCD PO Acetaminophen/ 0 .STK-MED ONE 08/20 0244 DC Hydrocodone Bitart PO Acetaminophen/ 1 TAB Q6P PRN 08/19 1730 DCD Hydrocodone Bitart PO Aspirin 81 MG DAILY 08/20 1000 DCD 08/20 PO 0908 Atorvastatin Calcium 40 MG DAILY 08/19 1740 DCD 08/20 PO 0907 Heparin Sodium 0 .STK-MED ONE 08/20 0530 DC (Porcine) .ROUTE Heparin Sodium 0 .STK-MED ONE 08/19 2217 DC (Porcine) .ROUTE Heparin Sodium 5,000 UNIT Q8 08/19 2200 DCD 08/20 (Porcine) SC 1533 Insulin Aspart 0 TIDAC 08/19 1815 DCD 08/20 SC 1215 Insulin Detemir 25 UNITS BID 08/19 2200 DCD 08/20 SC 0907 Losartan Potassium 25 MG DAILY 08/20 1000 DCD 08/20 PO 0907 Morphine Sulfate 2 MG Q4P PRN 08/19 1730 DCD IV Past History Travel History Traveled to [place] past 21 day No Medical History Blood Transfusion Hx: No Cardiovascular: hypertension, hyperlipidemia Endocrine: diabetes Surgical History Surgical History: non-contributory Psychosocial History Where Do You Live? Home Who Do You Live With? Family Services at Home: None Smoking Status: Never Smoked ETOH Use: denies use Illicit Drug Use: denies illicit drug use Living Will? no Functional Ability ADLs Independent: dressing, eating, toileting, bathing. Ambulation: independent IADLs Independent: shopping, housework, finances, food prep, telephone, transportation , medication admin. Employment History Employment: Retired Exam & Diagnostic Data Vital Signs and I&O Vital Signs Date Time Temp Pulse Resp B/P Pulse O2 O2 Flow FiO2 Ox Delivery Rate 08/20 1608 97.0 75 18 128/75 98 Room Air 08/20 1600 98.0 84 20 128/75 97 08/20 0907 97.5 80 132/65 / 0805 97.5 80 20 132/65 99 Room Air 08/20 0618 97.5 80 20 132/65 99 Room Air 08/20 0340 97.2 80 20 111/58 97 Room Air 08/19 2245 97.5 72 16 130/69 98 Intake & Output 08/20 1600 08/20 0800 08/20 0000 08/19 1600 03/08 0800 03/08 0000 Intake Total 800 120 0 Output Total 300 Balance 500 120 0 Intake, Oral 800 120 0 Output, Urine 300 Patient 180 lb 180 lb Weight Physical Exam: General Appearance Alert, Oriented X3, Cooperative, No Acute Distress Skin No Rashes, No Breakdown HEENT Atraumatic, PERRLA, EOMI, Mucous Membr. moist/pink Neck Supple, No JVD, +2 Carotid Pulse wo Bruit Lymphatic Cervical nl Cardiovascular Regular Rate, Normal S1, Normal S2, No Murmurs Lungs Clear to Auscultation, Normal Air Movement Abdomen Normal Bowel Sounds, Soft, No Tenderness, No Hepatospenomegaly, No Masses Neurological Normal Speech, Strength at 5/5 X4 Ext, Normal Tone, Cranial Nerves 3-12 NL Extremities No Clubbing, No Cyanosis, No Edema, No Tenderness/Swelling Vascular Pulses Symmetrical Labs/Eric Results: Laboratory Tests 08/20 08/20 0600 0450 Chemistry Sodium (137 - 145 mmol/L) 141 Potassium (3.5 - 5.1 mmol/L) 3.9 Chloride (98 - 107 mmol/L) 104 Carbon Dioxide (22 - 30 mmol/L) 28 Anion Gap (5 - 16) 9 BUN (9 - 20 mg/dL) 12 Creatinine (0.7 - 1.2 mg/dL) 0.9 Estimated GFR (>60 ml/min) > 60 BUN/Creatinine Ratio (7 - 25 %) 13.3 Hemoglobin A1c (4.2 - 5.8 %) 8.8 H Troponin I (<0.11 ng/ml) < 0.01 Triglycerides (<150 mg/dL) Cancelled 107 Cholesterol (< 200 MG/DL) Cancelled 137 LDL Cholesterol, Calc (65 - 129 mg/dL) Cancelled 83 HDL Cholesterol (40 - 60 mg/dL) Cancelled 33 L Cholesterol/HDL Ratio (0.00 - 4.88 %) Cancelled 4 Free T4 (0.78 - 2.44 ng/dL) 1.16 Total T3 (0.97 - 1.69 ng/mL) 1.55 TSH &T3 &Free T4 Intrp (0.27 - 4.20 uIU/mL) 1.550 Hematology CBC w Diff Cancelled NO MAN DIFF REQ WBC (4.8 - 10.8 /CUMM) Cancelled 11.1 H RBC (4.70 - 6.10 /CUMM) Cancelled 5.11 Hgb (14.0 - 18.0 G/DL) Cancelled 13.3 L Hct (42 - 52 %) Cancelled 41.0 L MCV (80.0 - 94.0 FL) Cancelled 80.3 MCH (27.0 - 31.0 PG) Cancelled 26.0 L RDW (11.5 - 14.5 %) Cancelled 14.3 Plt Count (130 - 400 /CUMM) Cancelled 237 MPV (7.4 - 10.4 FL) Cancelled 7.9 Gran % (42.2 - 75.2 %) 50.3 Lymphocytes % (20.5 - 51.1 %) 39.6 Monocytes % (1.7 - 9.3 %) 6.6 Eosinophils % (0 - 5 %) 3.2 Basophils % (0.0 - 2.0 %) 0.3 Absolute Granulocytes (1.4 - 6.5 /CUMM) 5.6 Absolute Lymphocytes (1.2 - 3.4 /CUMM) 4.4 H Absolute Monocytes (0.10 - 0.60 /CUMM) 0.7 H Absolute Eosinophils (0.0 - 0.7 /CUMM) 0.4 Absolute Basophils (0.0 - 0.2 /CUMM) 0 PUBS MCHC (33.0 - 37.0 G/DL) Cancelled 32.4 L 08/20 08/19 08/19 0400 2125 1538 Chemistry Sodium (137 - 145 mmol/L) 138 Potassium (3.5 - 5.1 mmol/L) 4.5 Chloride (98 - 107 mmol/L) 102 Carbon Dioxide (22 - 30 mmol/L) 26 Anion Gap (5 - 16) 10 BUN (9 - 20 mg/dL) 13 Creatinine (0.7 - 1.2 mg/dL) 0.9 Estimated GFR (>60 ml/min) > 60 BUN/Creatinine Ratio (7 - 25 %) 14.4 Glucose (65 - 99 mg/dL) 165 H Calcium (8.4 - 10.2 mg/dL) 9.8 Total Bilirubin (0.2 - 1.3 mg/dL) 0.7 AST (17 - 59 U/L) 28 ALT (21 - 72 U/L) 32 Alkaline Phosphatase (< 127 U/L) 70 Troponin I (<0.11 ng/ml) Cancelled < 0.01 < 0.01 C-Reactive Prot, Quant (<1.0 mg/dL) 0.6 Total Protein (6.3 - 8.2 g/dL) 7.7 Albumin (3.5 - 5.0 g/dL) 4.2 Globulin (1.9 - 4.2 gm/dL) 3.5 Albumin/Globulin Ratio (1.1 - 2.2 %) 1.2 Coagulation PT (9.4 - 12.5 SEC) 13.2 H INR (0.90 - 1.17) 1.26 H D-Dimer (70 - 232 ng/ml) < 200 Hematology CBC w Diff NO MAN DIFF REQ WBC (4.8 - 10.8 /CUMM) 11.4 H RBC (4.70 - 6.10 /CUMM) 5.35 Hgb (14.0 - 18.0 G/DL) 14.0 Hct (42 - 52 %) 43.2 MCV (80.0 - 94.0 FL) 80.8 MCH (27.0 - 31.0 PG) 26.2 L RDW (11.5 - 14.5 %) 14.0 Plt Count (130 - 400 /CUMM) 257 MPV (7.4 - 10.4 FL) 7.7 Gran % (42.2 - 75.2 %) 51.4 Lymphocytes % (20.5 - 51.1 %) 38.6 Monocytes % (1.7 - 9.3 %) 5.7 Eosinophils % (0 - 5 %) 4.0 Basophils % (0.0 - 2.0 %) 0.3 Absolute Granulocytes (1.4 - 6.5 /CUMM) 5.9 Absolute Lymphocytes (1.2 - 3.4 /CUMM) 4.4 H Absolute Monocytes (0.10 - 0.60 /CUMM) 0.6 Absolute Eosinophils (0.0 - 0.7 /CUMM) 0.5 Absolute Basophils (0.0 - 0.2 /CUMM) 0 PUBS MCHC (33.0 - 37.0 G/DL) 32.4 L Diagnostic Data EKG Results Normal Assessment/Plan Assessment/Plan Assessment: 1. CHest pain syndrome 2. HTN 3. HLD 4. DM 5. Murmur Recommendations: - Serial troponins - Serial ECGs - Echocardiogram - If negative, nuclear stress test today - If ETT negative, discharge home later today for followup wtih Dr. Smalls - COnsider trial of Motrin 200 BID or TID for possible musculoskeletal symptoms if the testing is negative. Consult Acknowledgment - Thank you for your consult request.
== END 2016-08-20 16:42 ==
LOC: CANRESERV → ENRESERVTM → ENRESERVDT → ERH 13:58 → ERHI 17:22 → EDBEDREQ 19:24 → ERHI 08-20 16:42
PROVIDERS: Internal Medicine Interventional Cardiology; Physician Assistant Medical; ADMIT Student in an Organized Health Care Education/Training Program
DX: R07.89 Other chest pain (principal); I10 Essential (primary) hypertension; E11.9 Type 2 diabetes mellitus without complications; Z79.4 Long term (current) use of insulin; E78.5 Hyperlipidemia, unspecified
CPT/HCPCS: 6090; 78452; 82436; 93005; 93010; 93016; 93017; 93306; 96372; A9502; G0378; J1644; J3490